=== PATIENT | female | born 1965 | race Caucasian/White ===

== ENCOUNTER 2018-09-24 09:32 | Day surgery (SDC) | payer OTHER ==
[~2018-09-24 09:32] MED LIST: CEFAZOLIN 2 GM/50 ML (PMX) 50 ML IVPB; SOD CHLORIDE 0.9% 1,000 ML IV
[2018-09-24 10:42] LABS: ADD MAN DIFF? NO
[2018-09-24 10:44] LABS: WHITE BLOOD COUNT 5.7 10^3/ul (4.8-10.8)
[2018-09-24 10:44] LABS: BASOPHILS % 0.5 % (0.0-2.0); EOSINOPHILS # 0.1 10^3/ul (0.0-0.5); EOSINOPHILS % 1.4 % (0.0-7.0); HEMATOCRIT 42.6 % (37.0-47.0); HEMOGLOBIN 14.1 g/dl (12.0-16.0); LYMPHOCYTES # 2.6 10^3/ul (0.8-2.9); LYMPHOCYTES % 45.9 % (15.0-51.0); MEAN CORPUSCULAR HEMOGLOBIN 31.4 pg (29.0-33.0); MEAN CORPUSCULAR HGB CONC 33.1 g/dl (32.0-37.0); MEAN CORPUSCULAR VOLUME 94.9 fl (82.0-101.0); MEAN PLATELET VOLUME 10.5 fl (7.4-10.4); MONOCYTE # 0.5 10^3/ul (0.3-0.9); MONOCYTES % 8.6 % (0.0-11.0); NEUTROPHIL # 2.5 10^3/ul (1.6-7.5); NEUTROPHILS % 43.3 % (39.0-77.0); PLATELET COUNT 183 10^3/UL (140-415); RED BLOOD COUNT 4.49 10^6/ul (4.20-5.40); RED CELL DISTRIBUTION WIDTH 11.9 % (11.5-14.5)
[2018-09-24 11:01] LABS: ALANINE AMINOTRANSFERASE 32 IU/L (13-69); ALBUMIN 3.8 g/dl (3.3-4.9); ALBUMIN/GLOBULIN RATIO 1.18; ALKALINE PHOSPHATASE 92 IU/L (42-121); ANION GAP 7 (5-13); ASPARTATE AMINO TRANSFERASE 27 IU/L (15-46); BILIRUBIN,INDIRECT 0.7 mg/dl (0-1.1); BILIRUBIN,TOTAL 0.7 mg/dl (0.2-1.3); BLOOD UREA NITROGEN 12 mg/dl (7-20); CALCIUM 9.2 mg/dl (8.4-10.2); CARBON DIOXIDE 29 mmol/L (21-31); CHLORIDE 106 mmol/L (97-110); CREATININE 0.64 mg/dl (0.44-1.00); Estimated GFR > 60 mL/min (>60); GLUCOSE 98 mg/dl (70-220); SODIUM 142 mmol/L (135-144)
[2018-09-24 11:03] LABS: INR 0.86; PROTIME 11.8 Sec (11.9-14.9); PT RATIO 0.9
[2018-09-24 11:14] LABS: PARTIAL THROMBOPLASTIN TIME 24.1 Sec (23.0-35.0)
[2018-09-24] MEDS: BUPIVACAINE 0.25% (MPF) 30 ML INJ INJ ×2 (12:13→13:35)
[2018-09-24] MEDS ORDERED: BUPIVACAINE 0.25% (MPF) 30 ML INJ (12:29)
[2018-09-24] MEDS ORDERED: PROPOFOL 40 ML (12:38)
[2018-09-24] MEDS ORDERED: PROPOFOL 20 ML (12:40)
[2018-09-24] MEDS ORDERED: CEFAZOLIN 1 GM INJ (12:54)
[2018-09-24] MEDS ORDERED: LIDOCAINE 2% (SDV) 5 ML INJ (12:54)
[2018-09-24] MEDS ORDERED: HYDROCODONE/APAP (5/325) TAB PO (13:30)
[2018-09-24] MEDS: FENTAnyl 50 MCG/ML VIAL IV (13:54)
[2018-09-24] MEDS ORDERED: ALBUTEROL 0.083% (NEB) 2.5 MG/3 ML AMP HHN (14:00)
[2018-09-24] MEDS ORDERED: KETOROLAC 30 MG INJ IV (14:00)
[2018-09-24] MEDS ORDERED: EPHEDrine 25 MG/5 ML SYG IV (14:00)
[2018-09-24] MEDS ORDERED: FENTAnyl 50 MCG/ML VIAL IV ×2 (14:00)
[2018-09-24] MEDS ORDERED: LABETALOL HCL 20MG INJ IV (14:00)
[2018-09-24] MEDS ORDERED: ONDANSETRON 4 MG INJ IV (14:00)
[2018-09-24] MEDS ORDERED: MEPERIDINE 25 MG INJ IV (14:00)
[2018-09-24] MEDS ORDERED: OXYCODONE/ACETAMINOPHEN (5/325) TAB PO ×2 (14:00)
[2018-09-24] MEDS ORDERED: hydrALAzine 20 MG INJ IV (14:00)
[2018-09-24] MEDS ORDERED: DIPHENHYDRAMINE 50 MG INJ IV (14:00)
== END 2018-09-24 15:33 | disposition home or self-care (01) ==
LOC: SDS 09:32
DX: D17.1 Benign lipomatous neoplasm of skin and subcutaneous tissue of trunk (principal); J45.909 Unspecified asthma, uncomplicated
CPT/HCPCS: 14001; 80053; 85025; 85610; 85730; 88307

== ENCOUNTER 2018-10-07 15:14 | Emergency (ER) | payer OTHER | END 2018-10-07 16:00 | disposition home or self-care (01) | LOC: E/R 15:14 | DX: Z48.01 Encounter for change or removal of surgical wound dressing (principal); J45.909 Unspecified asthma, uncomplicated; F17.210 Nicotine dependence, cigarettes, uncomplicated | CPT/HCPCS: 99281; Z7502 ==